=== PATIENT | female | born 1985 | race Caucasian/White ===

== ENCOUNTER 2017-01-11 12:00 | Inpatient (IN) ==
[2017-01-11] MEDS ORDERED: Metoclopramide 10 MG/2 ML VIAL IVP PRN (12:51)
[2017-01-11] MEDS ORDERED: Famotidine 20 MG/2 ML VIAL IVP PRN (12:51)
[2017-01-11] MEDS ORDERED: Ondansetron 4 MG/2 ML VIAL IVP PRN (12:51)
[2017-01-11] MEDS ORDERED: Naloxone 0.4 MG/ML INJ IVP PRN (12:51)
[2017-01-11] MEDS ORDERED: Penicillin G Potassium 5,000,000 UNIT in D5% in Water (Mini-Bag+) 100 ML IVPB ONE (13:15)
[2017-01-11 13:18] LABS: Basophils % 0.2 %; Eosinophils % 0.3 %; Hematocrit 39.6 % (35.3-44.9); Hemoglobin 13.1 g/dL (11.5-15.4); Lymphocytes # 1.9 K/mcL (0.6-4.6); Lymphocytes % 18.7 %; Mean Corpuscular HGB Conc 33.1 g/dL (31.6-35.5); Mean Corpuscular Hemoglobin 27.4 pg (28.0-33.3); Mean Corpuscular Volume 82.8 fL (83.0-100.0); Mean Platelet Volume 10.5 fL (9.4-12.4); Monocytes # 0.6 K/mcL (0.0-1.3); Monocytes % 5.6 %; Neutrophils # 7.5 K/mcL (1.6-8.9); Platelet Count 227 K/mcL (140-400); Red Blood Count 4.78 M/mcL (3.82-4.97); Red Cell Distribution Width 13.3 % (11.5-14.5); Segmented Neutrophils % 74.2 %
[2017-01-11] MEDS ORDERED: miSOPROStol 25 MCG TABLET PO SCH ×2 (13:39→16:00)
[2017-01-11] MEDS: Ringers Solution, Lactated 1,000 ML IVC SCH ×2 (13:40→23:17)
--- NOTE | 2017-01-11 15:04 | OB/GYN History & Physical ---
Date of Encounter: 01/11/17 Time of Encounter: 14:50 Assessment and Plan (1) Gestational diabetes mellitus (GDM) affecting fourth Current visit: Yes Status: Acute Admit for induction of labor. Cytotec for induction. PCN for GBS ppx. Epidural if requested. Anticipate . (2) 38 weeks gestation of Current visit: Yes Status: Acute History of Present Illness Chief complaint: IOL, GDMA2 HPI: Ms. Kidd is a 31 year old female presenting at 38 weeks 2 days gestation for IOL due to GDMA2. She reports feeling well today with no complaints other than contractions. Good FM. EFW on 01/04/17 3735g at which time [facility] recommended delivery at 38 weeks. Bloody type B positive. Rubella immune. Serologies negative. GBS positive. NKDA. Past Med Surg Social Fam HX - Past Medical History Medical history: no medical history Psychiatric history: anxiety - Past Surgical History Surgical History: no surgical history - Social History Smoking Status: Never smoker Smokeless Tobacco Status: No Alcohol use: none Drug use: none - Family History Mother Adopted: [place]: [place] Living Status: Still Living Hx Family Cardiac Disorders: No Hx Family Respiratory Disorders: No Hx Family Cancer: No Hx Family GI Disorders: No Hx Family Genitourinary Disorders: No Hx Family Endocrine Disorder: No Hx Family Musculoskeletal Disorders: No Hx Family Neuromuscular Disorders: No Hx Family Neurologic Disorders: No Hx Family HEENT Disorders: No Hx Family Autoimmune Disorders: No Hx Family Reproductive Disorders: No Hx Family Psychosocial Disorders: No Hx Family Medical Disorders: No Obstetrical History - Pregnancies : 4 Para: 2 Term: 2 : 0 Ab's: 1 Livin Medications and Allergies Citalopram 20 mg PO ONCE 01/11/17 [History] Metformin 1,000 mg PO ONCE 01/11/17 [History] Metformin 500 mg PO ONCE 01/11/17 [History] Tablet 01/11/17 [History] Allergies No Known Allergies Allergy (Verified 08/20/16 13:24) Review of System OB All systems PM: reviewed and no additional remarkable complaints except as stated Exam - Constitutional Constitutional: well developed, well nourished, no acute distress - HEENT HEENT: Mucus Membranes Moist - Lungs Respiratory exam: CTAB - Cardiovascular Cardiovascular exam: RRR, +S1, +S2 - Abdomen Abdomen: Present: gravid, non tender - Extremities Extremities exam: normal inspection - Vulva Vulva: bilateral: normal - Vagina Vagina: Present: normal moisture - Cervix Dilation: 4 - Anus/Rectum Anus/Rectum: Present: normal perianal skin Results Result Diagrams: 01/11/17 12:55 Abnormal lab results MCV 82.8 fL (83.0-100.0) L 01/11/17 12:55 MCH 27.4 pg (28.0-33.3) L 01/11/17 12:55 All other labs normal. - VTE Reasons for not Prescribing Prophylaxis: Treatment not Indicated - Low risk for VTE
[2017-01-11] MEDS: Penicillin G Potassium 2,500,000 UNIT in D5% in Water 100 ML IVPB SCH ×2 (17:42→23:00)
--- NOTE | 2017-01-11 21:25 | OB Labor Progress Note ---
Date of Encounter: 01/11/17 Time of Encounter: 21:24 Labor Progress Note - Subjective Subjective: Pt. comfortable - Cervix Cervix: 4/80%/VTX/0 - Heart Tones Heart Tones: Reactive FHR - [place] Cent[place]: Contraction approximately every 5 minutes. - Interventions Interventions: AROM, large amount of clear fluid.
[2017-01-12] MEDS ORDERED: *HR* Nalbuphine 20 MG/ML AMPUL IVP PRN ×2 (00:30→00:38)
[2017-01-12] MEDS ORDERED: *HR* Nalbuphine 20 MG/ML AMPUL ONE (00:35)
[2017-01-12] MEDS ORDERED: Oxytocin 20 units/ LR 1000 mL 20 UNIT/1,000 ML BAG IVC SCH (02:00)
[2017-01-12] MEDS ORDERED: *HR* FentaNYL (PF) 100 MCG/2 ML VIAL EP ONE (02:48)
[2017-01-12] MEDS ORDERED: *HR* Ropivacaine/PF 0.2% 10 ML AMPUL EP ONE (02:48)
[2017-01-12] MEDS ORDERED: Epidural Premix (fent/bupiv) 110 ML EP ONE ×2 (02:50→10:27)
[2017-01-12] MEDS ORDERED: *HR* FentaNYL (PF) 100 MCG/2 ML VIAL ONE (02:50)
[2017-01-12] MEDS ORDERED: *HR* Ropivacaine/PF 0.2% 10 ML AMPUL ONE (02:50)
[2017-01-12] MEDS ORDERED: Epidural Premix (fent/bupiv) 110 ML EP SCH (03:00)
--- NOTE | 2017-01-12 03:13 | Anesthesia Evaluation PreOp ---
Date of Encounter: 01/12/17 Time of Encounter: 03:11 - Past History Planned Operation: alma Cardiac History: Denies any Significant Hx Pulmonary History: Denies Any Significant HX ASSOCIATE SPA DIRECTOR History: Denies Any Significant HX Other Medical History: Diabetes Type II, GERD, Other (depression, anxiety) Anesthesia History: No Prior Anesthetic Complications : Yes Alcohol Use: none Drug use: none Medications and Allergies Citalopram 20 mg PO ONCE 01/11/17 [History] Metformin 1,000 mg PO ONCE 01/11/17 [History] Metformin 500 mg PO ONCE 01/11/17 [History] Tablet 01/11/17 [History] Allergies No Known Allergies Allergy (Verified 08/20/16 13:24) - Meds/Allergy Pre-op Review Medications Reviewed: Yes Allergies Reviewed: Yes Beta Blockers on Current Med List: No Anesthesia Results - Labs 01/11/17 12:55 Anesthesia Exam 132/88 104 16 fht 133 Height: 4'11" Weight: 90 kg Pain Scale: 7 Pain Scale Used: Numeric (1 - 10) - HEENT Pupil (Motor): Pupils equal Mallampati: II Oral Opening: Greater than 3 - ASSOCIATE SPA DIRECTOR LOC: Oriented ASSOCIATE SPA DIRECTOR Motor: Normal RUE, Normal LUE, Normal RLE, Normal LLE, Normal Face ASSOCIATE SPA DIRECTOR Sensory: Normal: RUE, LUE, RLE, LLE, Face - Cardiac Rhythm: Regular Murmur: None - Pulmonary Breath Sounds: bilateral Clear Respiratory Effort: Symmetrical Anesthesia Assess/Plan ASA Score: 3 Modified Sai Scale for Level of Consciousness: Cooperative, oriented, and tranquil Anesthetic Plan: Regional Autologous Blood: No Monitoring Plan: Standard Monitors Recovery Plan: Other (risks discussed, questions answered, consented)
--- NOTE | 2017-01-12 03:17 | Anesthesia Procedures ---
Date of Encounter: 01/12/17 Time of Encounter: 03:15 Procedures: Anesthesia - Epidural/Spinal Patient ID/Chart reviewed: Yes Patient examined: Yes OB Eval: Gestational age: 38 OB Eval: : 4 OB Eval: Hx Para: 2 OB Eval: Dilated at (cm): 9 OB Eval: Contractions: Non-stressed pattern Consent Obtained: Yes Supplemental Oxygen: None/Room Air Site Prep: Aseptic Technique Patient position: upright Local Anesthetic: Lidocaine 1% Amount of Local Anesthetic used: 3 Touhy Needle Gauge: 18 Touhy Needle Depth (cm): 5 Catheter Depth at Skin (cm): 12 Test Dose (1.5% Lido + Epi): Volume given (mls): 3 Test Dose Result: Negative Loading Dose: Fentanyl (mcg): 100 Loading Dose: Other: rop 0.2 Loading Dose Administered: Thru Touhy Needle Infusion Rate (mls/hr): [address]: Tegaderm Interspace Used: L2-L3 Loss of Resistance (RHONDA): Yes Blood: No CSF: No Paresthesia: No Procedure: aseptic, no complications, VSS Vitals + FHT's: 133/88 104 16 fht 144
[2017-01-12] MEDS: Ringers Solution, Lactated 1,000 ML IVC SCH ×2 (03:22→07:49)
[2017-01-12] MEDS: Penicillin G Potassium 2,500,000 UNIT in D5% in Water 100 ML IVPB SCH ×3 (03:27→12:18)
--- NOTE | 2017-01-12 05:38 | OB Labor Progress Note ---
Date of Encounter: 01/12/17 Time of Encounter: 05:36 Labor Progress Note - Subjective Subjective: Called to evaluate pt. for decels. Pt. comfortable with epidural - Cervix Cervix: Complete/100%/VTX/+1 - Heart Tones Heart Tones: Irregular decels noted with external monitors. Currrently accels present. Good scalp stim present - [place]: Contractions every 2-5 minutes. Pitocin just restarted at 1 mU/min. - Interventions Interventions: Monitor closely.
--- NOTE | 2017-01-12 09:30 | OB/GYN Progress Note ---
Date of Encounter: 01/12/17 Time of Encounter: 08:30 Subjective - Subjective Interval history: Patient comfortable with epidural. Objective - Vital Signs Vital Signs: Intake and Output 01/11/17 01/12/17 01/12/17 23:59 07:59 15:59 Intake Total 1200 / 1200 2100 / 2100 Balance 1200 / 1200 2100 / 2100 Intake: IV Fluids 1200 / 1200 2100 / 2100 Lactated Ringers 1,000 ML 1000 / 1000 2000 / 2000 @ 125 mls/hr IVC .Q8H JOSE Rx#:[id number] Pfizerpen 2,500,000 UNIT 200 / 200 100 / 100 In Dextrose 5% 100 ML @ 200 mls/hr IVPB Q4H JOSE Rx#:[id number] - Exam FHR: category 1 Cervical dilation: complete Cervix effacement: 90 station: +1 - Labs Labs: Abnormal lab results MCV 82.8 fL (83.0-100.0) L 01/11/17 12:55 MCH 27.4 pg (28.0-33.3) L 01/11/17 12:55
--- NOTE | 2017-01-12 13:16 | OB/GYN Procedure Note ---
Delivery - Delivery Date: 01/12/17 Provider: Greg Levy Intrapartum events: prolonged 2nd stage>2.5hr Delivery induction: misoprostol Delivery augmentation: pitocin Delivery monitor: external FHT, external uterine Anesthesia: epidural Estimated Blood Loss: 300 - Infant (s) A Infant Delivery Date: 01/12/17 Infant Delivery Time: 12:43 Presentation: vertex Position: RAGHAV Route of delivery: Gender: Male Viability: Viable Pounds: 8 Ounces: 5 at 1 minute: 7 at 5 mins: 9 Shoulder Dystocia: encountered Shoulder Dystocia Maneuvers: Dee maneuver, Diaz Screw maneuver Shoulder dystocia time elapsed: 90 seconds Specimens collected: cord blood Placenta: spontaneous - Repair Episiotomy: none Laceration Description: Perineal - 1st Degree - Complications Delivery complications: none - Disposition Mom disposition: stable in LDR [place] disposition: stable in LDR - Comments Comments: patient progressed to complete and on the perineum. Once the head delivered, a 90 second shoulder dystocia was encountered which was relieved using MacRobert's and Diaz maneuvers. A live male weighing 8 lbs. 5 oz. was delivered with Apgars 7 and 9. Position was left occiput anterior . Placenta delivered , spontaneously intact . EBL 300 . First degree perineal laceration was repaired using 3-0 monocryl .
[2017-01-12] MEDS ORDERED: *HR* Metformin 500 MG TABLET PO SCH (16:09)
[2017-01-12] MEDS ORDERED: Oxytocin 20 units/ LR 1000 mL 20 UNIT/1,000 ML BAG IV SCH (16:09)
[2017-01-12] MEDS ORDERED: Oxytocin 20 units/ LR 1000 mL 20 UNIT/1,000 ML BAG IVC ONE (16:09)
[2017-01-12] MEDS ORDERED: Acetaminophen 325 MG TABLET PO PRN (16:09)
[2017-01-12] MEDS ORDERED: Measles/Mumps/Rubella Vacc 0.5 ML VIAL SQ PRN (16:09)
[2017-01-12] MEDS: Ibuprofen 600 MG TABLET PO PRN (20:26)
[2017-01-13 06:54] LABS: Basophils % 0.3 %; Eosinophils # 0.1 K/mcL (0.0-0.6); Eosinophils % 0.5 %; Hematocrit 31.9 % (35.3-44.9); Immature Granulocytes % 1.2 % (0-4); Lymphocytes # 2.2 K/mcL (0.6-4.6); Lymphocytes % 14.4 %; Mean Corpuscular Hemoglobin 27.3 pg (28.0-33.3); Mean Corpuscular Volume 85.5 fL (83.0-100.0); Mean Platelet Volume 10.4 fL (9.4-12.4); Monocytes # 0.9 K/mcL (0.0-1.3); Monocytes % 6.1 %; Platelet Count 176 K/mcL (140-400); Red Blood Count 3.73 M/mcL (3.82-4.97); Red Cell Distribution Width 13.9 % (11.5-14.5); Segmented Neutrophils % 77.5 %
[2017-01-13 06:56] LABS: Basophils # 0.1 K/mcL (0.0-0.2); Hemoglobin 10.2 g/dL (11.5-15.4); Neutrophils # 11.9 K/mcL (1.6-8.9)
[2017-01-13] MEDS: Ibuprofen 600 MG TABLET PO PRN (08:06)
[2017-01-13 08:45] VITALS: BP 105/70
[2017-01-13] MEDS ORDERED: Prenatal Vit/FA 1 EACH TABLET PO SCH (09:00)
--- NOTE | 2017-01-13 10:23 | Discharge Summary ---
Date of Encounter: 01/13/17 Time of Encounter: 10:21 - Discharge Diagnosis (1) Vaginal delivery Priority: Primary Status: Resolved (2) 38 weeks gestation of Priority: Secondary Status: Resolved (3) Gestational diabetes mellitus (GDM) affecting fourth Priority: Secondary Status: Acute - Discharge Medications Home Medications: Citalopram 20 mg PO ONCE 01/11/17 [History] Tablet 01/11/17 [History] Allergies/Adverse Reactions: Allergies No Known Allergies Allergy (Verified 08/20/16 13:24) Data Procedures and tests throughout hospitalization: Laboratory Tests 01/11/17 01/13/17 12:55 06:29 WBC 10.1 15.4 H D RBC 4.78 3.73 L Hgb 13.1 10.2 L D Hct 39.6 31.9 L MCV 82.8 L 85.5 MCH 27.4 L 27.3 L MCHC 33.1 32.0 RDW 13.3 13.9 Plt Count 227 176 MPV 10.5 10.4 Immature Gran % 1.0 1.2 Seg Neutrophils % 74.2 77.5 Lymphocytes % 18.7 14.4 Monocytes % 5.6 6.1 Eosinophils % 0.3 0.5 Basophils % 0.2 0.3 Neutrophils # 7.5 11.9 H Lymphocytes # 1.9 2.2 Monocytes # 0.6 0.9 Eosinophils # 0.0 0.1 Basophils # 0.0 0.1 Labs on day of discharge: Labs from last 24 hours 01/13/17 06:29 WBC 15.4 H D RBC 3.73 L Hgb 10.2 L D Hct 31.9 L MCV 85.5 MCH 27.3 L MCHC 32.0 RDW 13.9 Plt Count 176 MPV 10.4 Immature Gran % 1.2 Seg Neutrophils % 77.5 Lymphocytes % 14.4 Monocytes % 6.1 Eosinophils % 0.5 Basophils % 0.3 Neutrophils # 11.9 H Lymphocytes # 2.2 Monocytes # 0.9 Eosinophils # 0.1 Basophils # 0.1 Date of admission: 01/11/17 12:02 Primary care physician: PCP NO Consults: 01/12/17 16:09 Consult to Washer Off [CONS] Routine Comment: Vaginal delivery, consult needed Discharging clinician: Deborah Villarreal Anticipated date of discharge: 01/13/17 - Patient Status Disposition: Home, Self-Care Condition: Good Functional capacity at discharge: independent ambulation Overall status at discharge: patient is progressing back to baseline - Discharge Instructions Follow Up With: Deborah Villarreal DO [Partnered Physician] - (February 12, 2017 @ 3:00 pm) - Diet and Activity Activity: increase activity as tolerated Diet: diabetic diet Hospital Course Reason for admission: induction of labor, other (gestational diabetes) Delivery: Episiotomy: none Laceration: 1st degree Other procedures: none complications: none Discharge diagnosis: IUP at term delivered baby: male Time Attestation: Total time spent providing and/or coordinating discharge services: Time Spent: Less than 30 minutes Exam - Constitutional Vitals: Temp Pulse Resp BP Pulse Ox 97.6 F 78 16 105/70 98 01/13/17 08:10 01/13/17 08:10 01/13/17 08:10 01/13/17 08:10 01/13/17 08:10 General appearance IM: A&O X 3, no acute distress - Respiratory Respiratory exam: Absent: respiratory distress - Cardiovascular Cardiovascular exam IM: Absent: irregular rhythm - GI/Abdominal GI/Abdominal exam IM: normal bowel sounds Incision: normal, dry, intact - Rectal Rectal exam: deferred - Uterine Tone: Firm Uterus Position: 2 Fingers Below Umbilicus - Extremities Exam Extremities exam IM: Absent: calf tenderness
== END 2017-01-13 15:00 | disposition home or self-care (01) | DRG 775 ==
LOC: 1NENULAB 12:02 → 1NENUOBS 01-12 16:01

== ENCOUNTER 2019-12-23 05:56 | Inpatient (IN) ==
[~2019-12-23 05:56] MED LIST: Famotidine 20 MG/2 ML VIAL IVP PRN; Metoclopramide 10 MG/2 ML VIAL IVP PRN; Naloxone 0.4 MG/ML INJ IVP PRN; Ondansetron 4 MG/2 ML VIAL IVP PRN; Ringers Solution, Lactated 1,000 ML ONE
[2019-12-23] MEDS ORDERED: Ringers Solution, Lactated 1,000 ML IVC SCH (06:00)
[2019-12-23 06:23] LABS: Basophils % 0.3 %; Eosinophils % 0.4 %; Hemoglobin 13.7 g/dL (11.5-15.4); Immature Granulocytes % 1.3 % (0-4); Lymphocytes # 2.2 K/mcL (0.6-4.6); Lymphocytes % 21.6 %; Mean Corpuscular HGB Conc 33.4 g/dL (31.6-35.5); Mean Corpuscular Hemoglobin 27.9 pg (28.0-33.3); Mean Corpuscular Volume 83.5 fL (83.0-100.0); Mean Platelet Volume 10.9 fL (9.4-12.4); Monocytes # 0.5 K/mcL (0.0-1.3); Monocytes % 4.6 %; Neutrophils # 7.3 K/mcL (1.6-8.9); Platelet Count 257 K/mcL (140-400); Red Blood Count 4.91 M/mcL (3.82-4.97); Red Cell Distribution Width 13.5 % (11.5-14.5); Segmented Neutrophils % 71.8 %; White Blood Count 10.2 K/mcL (4.3-11.1)
[2019-12-23 06:25] LABS: Amphetamine Screen,Urine Negative ng/mL (Cutoff=1000); Barbiturate Screen,Urine Negative ng/mL (Cutoff=200)
[2019-12-23 06:26] LABS: Benzodiazepines Screen,Urine Negative ng/mL (Cutoff=300); Cannabinoid Screen,Urine Negative ng/mL (Cutoff = 50); Cocaine Screen,Urine Negative ng/mL (Cutoff= 300); Opiate Screen,Urine Negative ng/mL (Cutoff=300); Phencyclidine Screen,Urine Negative ng/mL (Cutoff=25)
[2019-12-23] MEDS ORDERED: Ringers Solution, Lactated 1,000 ML IVC ONE (09:14)
[2019-12-23] MEDS ORDERED: D5% in Lactated Ringers 1,000 ML IVC ONE (09:31)
[2019-12-23] MEDS ORDERED: Ondansetron 4 MG/2 ML VIAL IVP PRN ×2 (10:06→23:44)
[2019-12-23] MEDS ORDERED: Naloxone 0.4 MG/ML INJ IVP PRN (10:06)
[2019-12-23] MEDS ORDERED: EPHEDrine 50 MG/ML VIAL IVP PRN (10:06)
[2019-12-23] MEDS ORDERED: *HR* FentaNYL (PF) 100 MCG/2 ML VIAL EP ONE (10:06)
[2019-12-23] MEDS ORDERED: Ropivacaine/PF 0.2% 20 ML VIAL EP ONE (10:06)
[2019-12-23] MEDS ORDERED: Epidural Premix (fent/bupiv) 110 ML EP SCH (10:15)
[2019-12-23] MEDS ORDERED: Morphine Sulfate 2 MG/ML SYRINGE IVP PRN (18:02)
[2019-12-23] MEDS ORDERED: *HR* OxyCODONE/APAP 5/325 TABLET PO PRN (18:02)
[2019-12-23] MEDS ORDERED: Ibuprofen 400 MG TABLET PO PRN (18:02)
[2019-12-23] MEDS ORDERED: Lidocaine -MPF 2% 5 ML VIAL ONE (18:24)
[2019-12-23] MEDS ORDERED: Chloroprocaine/PF 20 ML VIAL INFILT ONE (18:25)
[2019-12-23] MEDS ORDERED: Ropivacaine/PF 0.2% 20 ML VIAL ONE (18:25)
[2019-12-23] MEDS ORDERED: *HR* FentaNYL (PF) 100 MCG/2 ML VIAL ONE (18:44)
[2019-12-23] MEDS ORDERED: EPHEDrine 50 MG/ML VIAL ONE (18:57)
[2019-12-23] MEDS ORDERED: ceFAZolin 2,000 MG in 0.9 % Sodium Chloride 100 ML IVPB SCH (19:00)
[2019-12-23] MEDS ORDERED: *HR* Morphine Sulfate/PF 10 MG/10 ML AMPUL ONE (19:11)
[2019-12-23] MEDS ORDERED: *HR* Oxytocin 10 UNIT/ML VIAL IM ONE ×2 (19:12→19:54)
[2019-12-23] MEDS ORDERED: Ringers Solution, Lactated 1,000 ML ONE (19:52)
[2019-12-23] MEDS ORDERED: Metoclopramide 10 MG/2 ML VIAL IVP PRN (23:44)
[2019-12-23] MEDS ORDERED: Oxytocin 20 units/ LR 1000 mL 20 UNIT/1,000 ML BAG IVC SCH (23:44)
[2019-12-23] MEDS ORDERED: *HR* OxyCODONE Immed Rel 5 MG TABLET PO PRN (23:44)
[2019-12-24] MEDS: metroNIDAZOLE 500 MG TABLET PO SCH ×4 (00:23→20:48)
[2019-12-24] MEDS: Acetaminophen 325 MG TABLET PO SCH ×4 (00:23→20:48)
[2019-12-24] MEDS: Ibuprofen 600 MG TABLET PO SCH ×4 (00:23→20:49)
[2019-12-24] MEDS: cephALEXin 500 MG CAPSULE PO SCH ×4 (00:24→20:48)
[2019-12-24 07:35] LABS: Basophils % 0.2 %; Eosinophils % 0.2 %; Hematocrit 33.5 % (35.3-44.9); Immature Granulocytes % 0.9 % (0-4); Lymphocytes # 1.5 K/mcL (0.6-4.6); Lymphocytes % 16.5 %; Mean Corpuscular HGB Conc 32.8 g/dL (31.6-35.5); Mean Corpuscular Hemoglobin 27.7 pg (28.0-33.3); Mean Corpuscular Volume 84.4 fL (83.0-100.0); Mean Platelet Volume 10.1 fL (9.4-12.4); Monocytes # 0.4 K/mcL (0.0-1.3); Monocytes % 4.1 %; Neutrophils # 7.2 K/mcL (1.6-8.9); Platelet Count 199 K/mcL (140-400); Red Blood Count 3.97 M/mcL (3.82-4.97); Red Cell Distribution Width 13.8 % (11.5-14.5); Segmented Neutrophils % 78.1 %; White Blood Count 9.3 K/mcL (4.3-11.1)
[2019-12-24] MEDS: Simethicone 80 MG TAB.CHEW PO PRN ×3 (08:23→20:48)
[2019-12-24] MEDS: Prenatal Vit/FA 1 EACH TABLET PO SCH (08:23)
[2019-12-25] MEDS: Ibuprofen 600 MG TABLET PO SCH ×2 (01:28→06:17)
[2019-12-25] MEDS: Acetaminophen 325 MG TABLET PO SCH ×2 (01:28→06:17)
[2019-12-25 07:45] VITALS: BP 121/88
[2019-12-25] MEDS: cephALEXin 500 MG CAPSULE PO SCH (09:04)
[2019-12-25] MEDS: metroNIDAZOLE 500 MG TABLET PO SCH (09:04)
[2019-12-25] MEDS: Prenatal Vit/FA 1 EACH TABLET PO SCH (09:04)
== END 2019-12-25 12:38 | disposition home or self-care (01) | DRG 785 ==
LOC: 1NENULAB → 1NENUOBS 23:44
PROVIDERS: ADMIT Registered Nurse; ATTEND Registered Nurse